=== PATIENT | female | born 1965 | race Caucasian/White ===

== ENCOUNTER → 2017-09-10 | Outpatient (CLI) | payer BC ==
[2017-09-10 12:28] LABS: Basophils # (auto) 0 uL; Basophils % (auto) 0.2 % (0.0-2.0); Eosinophils # (auto) 0.1 uL; Eosinophils % (auto) 0.9 % (0.0-7.0); Hematocrit 44.8 % (36.0-46.0); Hemoglobin 15.2 g/dL (12.2-16.2); Lymphocytes # (auto) 2.5 uL; Lymphocytes % (auto) 24.9 % (10.0-50.0); Mean Corpuscular Hemoglobin 31.8 pg (28.0-32.0); Mean Corpuscular Hgb Conc. 33.9 g/dL (32.0-36.0); Mean Corpuscular Volume 93.8 fL (80.0-100.0); Monocytes # (auto) 0.8 uL; Neutrophils # (auto) 6.6 uL; Platelet Count (auto) 309 10^3/uL (140-450); Red Blood Cells 4.77 10^6/uL (4.0-5.20); White Blood Cell 10.1 10^3/uL (4.4-10.8)
[2017-09-10 12:54] LABS: Albumin 3.8 g/dL (3.4-5.0); BUN/Creatinine Ratio 15.1; Bilirubin, Total 0.5 mg/dL (0.2-1.0); Calcium 9.5 mg/dL (8.5-10.1); Potassium 4.1 mmol/L (3.5-5.1)
== END | disposition home or self-care (01) ==
LOC: LAB 11:34
PROVIDERS: ATTEND Physician Assistant
DX: I10 Essential (primary) hypertension (principal); E03.9 Hypothyroidism, unspecified
CPT/HCPCS: 36415; 80053; 80061; 84443; 85025

== ENCOUNTER → 2018-03-06 | Outpatient (CLI) | payer BC ==
[2018-03-06 15:00] LABS: Free T4 (Free Thyroxine) 1.09 ng/dL (0.89-1.76)
[2018-03-06 15:01] LABS: T3 Total 1.05 ng/mL (0.60-1.81)
== END | disposition home or self-care (01) ==
LOC: LAB 13:55
PROVIDERS: ATTEND Physician Assistant
DX: E03.9 Hypothyroidism, unspecified (principal); I10 Essential (primary) hypertension
CPT/HCPCS: 36415; 84439; 84443; 84480

== ENCOUNTER 2018-04-16 13:17 | Day surgery (SDC) | payer BC ==
[2018-04-12 15:32] LABS: Urine Bacteria FEW /hpf (None Seen); Urine Blood TRACE /uL (Negative); Urine Specific Gravity 1.009 (1.001-1.035); Urine WBC 3 /hpf (0 - 5)
[2018-04-12 15:40] LABS: Basophils # (auto) 0 uL; Basophils % (auto) 0.4 % (0.0-2.0); Eosinophils # (auto) 0.1 uL; Eosinophils % (auto) 1.1 % (0.0-7.0); Hematocrit 43.7 % (36.0-46.0); Hemoglobin 15.1 g/dL (12.2-16.2); Lymphocytes # (auto) 2.3 uL; Mean Corpuscular Hemoglobin 32.4 pg (28.0-32.0); Mean Corpuscular Hgb Conc. 34.4 g/dL (32.0-36.0); Mean Corpuscular Volume 94.1 fL (80.0-100.0); Monocytes # (auto) 0.9 uL; Monocytes % (auto) 9.4 % (0.0-12.0); Neutrophils # (auto) 5.9 uL; Neutrophils % (auto) 64.1 % (37.0-80.0); Platelet Count (auto) 312 10^3/uL (140-450); Red Blood Cells 4.65 10^6/uL (4.0-5.20); Red Cell Distribution Width 12.9 % (11.8-14.3); White Blood Cell 9.2 10^3/uL (4.4-10.8)
[2018-04-12 15:42] LABS: INR 0.87 (0.9-1.15); Partial Thromboplastin Time 28.5 sec (23.78-33.04); Prothrombin Time 9.4 sec (9.27-12.13)
[2018-04-12 15:59] LABS: Albumin 3.6 g/dL (3.4-5.0); BUN/Creatinine Ratio 16.7; Calcium 8.6 mg/dL (8.5-10.1); Potassium 4.1 mmol/L (3.5-5.1)
[2018-04-12 16:01] LABS: Bilirubin, Total 0.3 mg/dL (0.2-1.0); Total Protein 7.9 g/dL (6.4-8.2)
[~2018-04-16] VITALS: Ht 175.3 cm; Wt 115.7 kg
[~2018-04-16 13:17] MED LIST: LEVO125T7 PO; VARE1TAB PO
[2018-04-16] MEDS ORDERED: ceFAZolin 1GM/50ML 100 ML IV ONE (13:26)
[2018-04-16] MEDS ORDERED: LIDOCAINE 1% (LOCAL ANESTH.) PF 5ml SDV ONE (13:49)
[2018-04-16] MEDS ORDERED: SUCCINYLCHOLINE CHLORIDE 20 MG/ML 10ML VIAL IV ONE (13:49)
[2018-04-16] MEDS ORDERED: BUPIVACAINE HCL 50 ML ONE (13:53)
[2018-04-16] MEDS ORDERED: LIDOCAINE 1% HCL (LOCAL ANESTH.) INJ 20ML MDV ONE (13:53)
[2018-04-16] MEDS ORDERED: MIDAZOLAM HCL 1MG/1ML-2 ML VIAL ONE (13:58)
[2018-04-16] MEDS ORDERED: METOCLOPRAMIDE HCL 5MG/ml INJ 2ml VIAL ONE (13:59)
[2018-04-16] MEDS ORDERED: PROPOFOL 10 MG/ML 20 ML IV ONE (14:00)
[2018-04-16] MEDS ORDERED: fentaNYL CITRATE 100 MCG/2 ML VL ONE (14:10)
[2018-04-16] MEDS ORDERED: NALOXONE HCL 0.4 MG/ML VIAL IV PRN (14:30)
[2018-04-16] MEDS ORDERED: ONDANSETRON HCL 4 MG/2 ML VIAL IV ONE (14:30)
[2018-04-16] MEDS ORDERED: HYDROmorphone HCL 2 MG/ML VL IV PRN (14:30)
[2018-04-16] MEDS ORDERED: KETOROLAC TROMETH 30 MG/ML 1ML VIAL ONE (16:29)
[2018-04-16] MEDS: HYDROmorphone HCL 2 MG/ML VL IV PRN ×3 (17:04→17:55)
[2018-04-16 18:25] VITALS: BP 118/72
== END 2018-04-16 18:31 | disposition home or self-care (01) ==
LOC: SUR 13:17
PROVIDERS: ATTEND Podiatrist
DX: M21.42 Flat foot [pes planus] (acquired), left foot (principal); M76.822 Posterior tibial tendinitis, left leg; E66.9 Obesity, unspecified; G47.33 Obstructive sleep apnea (adult) (pediatric); E03.9 Hypothyroidism, unspecified; M19.90 Unspecified osteoarthritis, unspecified site; Z88.8 Allergy status to other drugs, medicaments and biological substances; Z79.899 Other long term (current) drug therapy; Z88.7 Allergy status to serum and vaccine; Z68.37 Body mass index [BMI] 37.0-37.9, adult; Z87.891 Personal history of nicotine dependence
CPT/HCPCS: 28300; 28304; 36415; 80053; 81001; 84702; 85025; 85610; 85730; J0330; J0690; J1170; J1885; J2001; J2250; J2405; J2704; J2765; J3010; J3490

== ENCOUNTER → 2018-09-13 | Outpatient (CLI) | payer BC ==
[2018-09-13 08:56] LABS: Basophils # (auto) 0.1 uL; Basophils % (auto) 0.8 % (0.0-2.0); Eosinophils # (auto) 0.3 uL; Eosinophils % (auto) 2.9 % (0.0-7.0); Hemoglobin 14.9 g/dL (12.2-16.2); Lymphocytes # (auto) 2.2 uL; Lymphocytes % (auto) 25.6 % (10.0-50.0); Mean Corpuscular Hemoglobin 31.2 pg (28.0-32.0); Mean Corpuscular Hgb Conc. 33.8 g/dL (32.0-36.0); Mean Corpuscular Volume 92.3 fL (80.0-100.0); Monocytes # (auto) 0.8 uL; Monocytes % (auto) 9.2 % (0.0-12.0); Neutrophils # (auto) 5.3 uL; Neutrophils % (auto) 61.5 % (37.0-80.0); Nucleated Red Blood Cells % 0.1 %; Platelet Count (auto) 285 10^3/uL (140-450); Red Blood Cells 4.77 10^6/uL (4.0-5.20); White Blood Cell 8.7 10^3/uL (4.4-10.8)
[2018-09-13 09:19] LABS: Calcium 9.4 mg/dL (8.5-10.1); Potassium 4.2 mmol/L (3.5-5.1)
[2018-09-13 09:25] LABS: BUN/Creatinine Ratio 22.8; Bilirubin, Total 0.4 mg/dL (0.2-1.0); Total Protein 7.9 g/dL (6.4-8.2)
[2018-09-13 09:30] LABS: Free T4 (Free Thyroxine) 0.94 ng/dL (0.89-1.76); T3 Total 0.73 ng/mL (0.60-1.81)
== END | disposition home or self-care (01) ==
LOC: LAB 08:28
PROVIDERS: ATTEND Physician Assistant
DX: Z00.00 Encounter for general adult medical examination without abnormal findings (principal); E03.9 Hypothyroidism, unspecified; N95.1 Menopausal and female climacteric states; I10 Essential (primary) hypertension; M25.561 Pain in right knee
CPT/HCPCS: 36415; 80053; 80061; 84439; 84443; 84480; 85025

== ENCOUNTER → 2018-12-17 | Outpatient (CLI) | payer BC ==
[2018-12-17 12:28] LABS: Free T4 (Free Thyroxine) 1.39 ng/dL (0.89-1.76)
[2018-12-17 12:30] LABS: T3 Total 1.02 ng/mL (0.60-1.81)
== END | disposition home or self-care (01) ==
LOC: LAB 11:32
PROVIDERS: ATTEND Physician Assistant
DX: E03.9 Hypothyroidism, unspecified (principal)
CPT/HCPCS: 36415; 84439; 84443; 84480